=== PATIENT | female | born 1975 | race Caucasian/White ===

== ENCOUNTER 2016-12-20 01:53 | Emergency (ER) | payer OTHER ==
[2016-12-20 02:37] LABS: CALCIUM 9.2 mg/dL (8.7-10.7); CREATININE 1.1 mg/dL (0.6-1.3); POTASSIUM 3.3 mmol/L (3.5-5.1)
== END 2016-12-20 05:18 | disposition home or self-care (01) ==
LOC: ER 01:53
PROVIDERS: General Practice
DX: L03.113 Cellulitis of right upper limb (principal); M79.601 Pain in right arm; F17.210 Nicotine dependence, cigarettes, uncomplicated; Z88.0 Allergy status to penicillin; Z79.899 Other long term (current) drug therapy
CPT/HCPCS: 36415; 80048; 85379; 96365; 96366; 99070; 99283-25; J3370; J7050